=== PATIENT | male | born 1990 | race Caucasian/White ===

== ENCOUNTER 2021-03-09 10:20 | Outpatient (REF) | payer OTHER, SELFPAY ==
--- NOTE | ~2021-03-09 | XR_ITS ---
EXAMINATION: XR FOOT, LEFT CLINICAL INFORMATION: Injury COMPARISON: None TECHNIQUE: AP, lateral, and oblique views of the left foot. FINDINGS: The bones and soft tissues are normal. No fracture. Alignment is anatomic. Joint spaces are maintained. XR/XR foot LT min 3V IMPRESSION: Normal left foot.
== END 2021-03-09 10:21 | disposition home or self-care (01) ==
LOC: HO.HMGCX 10:20
PROVIDERS: Visit Provider Physician Assistant Medical
DX: S99.922A Unspecified injury of left foot, initial encounter (principal); X58.XXXA Exposure to other specified factors, initial encounter; Y93.9 Activity, unspecified; Y92.9 Unspecified place or not applicable; Y99.9 Unspecified external cause status
CPT/HCPCS: 73630

== ENCOUNTER 2022-01-07 09:40 | Outpatient (REF) | payer OTHER, SELFPAY ==
--- NOTE | ~2022-01-07 | XR_ITS ---
EXAMINATION: XR KNEE, RIGHT CLINICAL INFORMATION: Pain of the knee COMPARISON: None TECHNIQUE: Four views of the right knee. FINDINGS: Bones and joints are normal. No arthritic deformity, fracture or joint effusion. The soft tissues appear to be mildly swollen in the prepatellar region. XR/XR knee RT 4V IMPRESSION: * No knee joint effusion. * No acute osseous injury. * Mild soft tissue swelling in the prepatellar region requires clinical correlation. If the patient had a recent fall, then this could represent posttraumatic bruising/edema. Any pain in this area? Prepatellar bursitis might be a consideration.
== END 2022-01-07 09:41 | disposition home or self-care (01) ==
LOC: HO.HMGCX 09:40
PROVIDERS: PCP Internal Medicine; Visit Provider Internal Medicine
DX: M25.561 Pain in right knee (principal)
CPT/HCPCS: 73564

== ENCOUNTER 2022-06-15 09:04 | Outpatient (REF) | payer OTHER, SELFPAY ==
[2022-06-15 12:54] LABS: Influenza A PCR NEGATIVE (Negative); Influenza B PCR NEGATIVE (Negative); Resp Syncy Virus RNA Qual PCR POSITIVE (Negative); SARS COV2 PCR INHOUSE NEGATIVE (Negative)
== END 2022-06-15 09:05 | disposition home or self-care (01) ==
LOC: HO.LAB 09:04
PROVIDERS: Visit Provider Nurse Practitioner Family
DX: Z20.822 Contact with and (suspected) exposure to COVID-19 (principal); J06.9 Acute upper respiratory infection, unspecified
CPT/HCPCS: 0241U

== ENCOUNTER 2023-05-25 08:34 | Outpatient (AMB) | payer OTHER, SELFPAY ==
--- NOTE | 2023-05-25 08:44 | MHC.OFFWIV ---
Intake Vital Signs 05/25/23 08:46 Height 6 ft Weight 183 lb BMI 24.8 BP 134/66 Blood Pressure Location Lt brachial Position Sitting Pulse 100 Pulse Source Pulse Oximeter Temp 99.2 F Temp Source Oral Intake Visit Reasons: EP breathing hard inhaler not working [id number] Intake Note: Pt is here today c/o SOB and coughing, requesting an inhaler> Went to [facility] last night and left after waiting 3 hrs Patient Tobacco Use Status: Current everyday Tobacco user Allergies prednisone Allergy (Mild, Verified 05/25/23 08:44) mental status change Do you need a note to return to daycare/school/sports/work: Yes HPI HPI Comments History of Present Illness Details Patient is a 33-year-old male in today for a sick visit. He states that he recently traveled to [place] and when he returned he developed symptoms of dry cough, headache, congestion, sore throat, and fever. He has a past medical history significant for asthma. He is a cigarette smoker. He has taken some Tylenol with little effect. He states he is unable to take much Tylenol due to him taking lithium. He has used his albuterol inhaler at home with little effect. Denies chest pain, dizziness. States he feels like his lungs are tight, has intermittent shortness of breath especially after coughing spells. He states that he went to [facility] last night had a chest x-ray while he was in the waiting room which was negative, and left before he ever saw provider. [facility] Social History Patient Tobacco Use Status: Current everyday Tobacco user Review of Systems Const Details: Constitutional : No Weight loss, Admits Fever, Admits Chills, Admits Fatigue, No Malaise ENT/Mouth : No sore throat, Admits sinus congestion. Eyes: No Eye Pain, No Swelling, No Redness Cardiovascular : No Chest Pain, Intermittent SOB after coughing spells, No Dyspnea on Exertion, No Orthopnea, No Edema, No Palpitations Respiratory : Admits Cough, No Sputum, Admits Wheezing Gastrointestinal : No Nausea, Admits some Vomiting, No Diarrhea, No Constipation, No abdominal Pain, No Hematochezia, No Melena Neuro : No Weakness, No Numbness, No Dizziness, No Headache All other systems reviewed and are negative Physical Exam Vital Signs: Last Vital Signs Temp 99.2 F 05/25/23 08:46 Pulse 100 05/25/23 08:46 BP 134/66 05/25/23 08:46 BMI result Body Mass Index 24.8 Vital signs have been reviewed and are stable Const Other: Appearance: Alert.? Oriented X3.? No acute distress.? Eyes: Pupils equal, round and reactive to light.? ENT: Pharynx cobblestoned. Clear nasal discharge. Sinus tenderness. TM intact, pearly win. ? Neck: Normal inspection.? Neck supple.?Full ROM. CVS: Normal heart rate and rhythm.? Pulses normal.? Respiratory: No respiratory distress.? Wheeze bilateral upper lobes.? Neuro: Oriented X 3.? No motor deficit.? No sensory deficit. CN 2-12 intact After in office Nebulizer treatment wheeze significantly reduced. Office Procedures Nebulizer Treatment Nebulizer Treatment 53410-[id number]/MDI RX initial, or Nebulizer Subsequent Treatment Office Meds ipratropium 0.5 mg-albuterol 3 mg (2.5 mg base)/3 mL nebulization soln Performing Provider: BRY Mendez Performing Location: [facility] Administered by: BRY Mendez on 05/25/23 09:35 Dose Route Admin Location Dispensed Lot Number Expiration Date [facility] [employer] 3 mL inhalation office 3 mL [id number] 03/06/24 8142-1349-39 [employer] Results Reviewed Results Reviewed: Will call patient with results. Assessment & Plan Assessment & Plan (1) Upper respiratory tract infection: Comment: Patient states that in the past Advair Diskus has helped. He is unable to utilize prednisone as he has adverse effects to it. Will order Advair Diskus, benzonatate, azithromycin. These medication should be taken as directed. He has been educated on the common side effects. Code(s): J06.9 - Acute upper respiratory infection, unspecified Qualifiers: URI type: unspecified URI Qualified Code(s): J06.9 - Acute upper respiratory infection, unspecified Plan: The patient has been educated on signs of worsening symptoms and when to return back to the walk-in clinic or when to present to the emergency room. The patient states he understands. Plan Take your medications as prescribed. If you were prescribed antibiotics today, it is important that you take your medication to their entirety, do not skip any doses, do not finish them early. Follow-up with your primary care provider this week. Return to the emergency department with new or worsening symptoms. Such as fevers, chills, chest pain, shortness of breath, nausea, vomiting, dizziness, headache, vision changes, lethargy In case of emergency call 911 Orders: Orders SARS-CoV2/FLU/RSV Today J06.9 - Acute upper respiratory infection, unspecified AMB Nebulizer Treatment Today J06.9 - Acute upper respiratory infection, unspecified Coding Level of Care Code Est Pt Level 3 (34623) Diagnoses Upper respiratory tract infection, unspecified type J06.9 URI type: unspecified URI CPT Codes Nebulizer Treatment - Nebulizer Treatment, initial or subsequent: [id number]/MDI RX initial, or Nebulizer Subsequent Treatment ([id number]) Time Spent (min) 30
[2023-05-25 08:46] VITALS: BP 134/66; PULSE 100; TEMP 37.3; BMI 24.8
== END 2023-05-25 09:54 | disposition home or self-care (01) ==
PROVIDERS: PCP Internal Medicine; Visit Provider Nurse Practitioner Primary Care
DX: J06.9 Acute upper respiratory infection, unspecified (principal)
CPT/HCPCS: 94640; 99213; J7620

== ENCOUNTER 2023-05-25 11:24 | Outpatient (REF) | payer OTHER, SELFPAY ==
[2023-05-25 12:44] LABS: Influenza A PCR POSITIVE (Negative); Influenza B PCR NEGATIVE (Negative); Resp Syncy Virus RNA Qual PCR NEGATIVE (Negative); SARS COV2 PCR INHOUSE NEGATIVE (Negative)
== END 2023-05-25 11:25 | disposition home or self-care (01) ==
LOC: HO.LNP 11:24
PROVIDERS: Visit Provider Nurse Practitioner Primary Care
DX: Z11.52 Encounter for screening for COVID-19 (principal); J06.9 Acute upper respiratory infection, unspecified
CPT/HCPCS: 0241U

== ENCOUNTER 2024-05-22 08:16 | Outpatient (AMB) | payer BC, SELFPAY ==
--- OUTSIDE RECORDS SUMMARY | 2024-05-22 08:19 | XMS_ITS ---
Author Name [facility] Organization Unknown History of Medication Use Medication Directions Dispensed Refills Start Date End Date Stat us albuterol (VENTOLIN HFA) 90 mcg/actuation inhaler INHALE 2 PUFFS BY MOUTH EVERY 4 HOURS NEEDED FOR WHEEZING OR SHORTNESS OF BREATH/DYSPNEA 05/20/2024 06/05/9999 active lithium 600 MG capsule Take 1 capsule (600 mg total) by mouth 05/20/2024 06/05/9999 active amoxicillin (AMOXIL) 500 MG tablet Take 2 tablets (1,000 mg total) by mouth every 8 (eight) hours for 5 days 05/20/2024 06/05/9999 active cloNIDine HCL (CATAPRES) 0.1 MG tablet TAKE 1 TABLET BY MOUTH EVERY DAY 05/20/2024 06/05/9999 active fluticasone propion-salmeteroL (ADVAIR) 250-50 mcg/dose DISKUS Inhale 1 puff 05/20/2024 06/05/9999 active acetaminophen (TYLENOL) 500 MG tablet Take 1-2 tablets (500-1,000 mg total) by mouth every 6 (six) hours as needed for pain (Max 6 tablets/24 hrs) for up to 7 days 05/20/2024 06/05/9999 active aripiprazole (ABILIFY) 10 MG tablet TAKE 1 TABLET BY MOUTH EVERY DAY IN THE MORNING 05/20/2024 06/05/9999 active Problems Problem Status Onset Date Problem Type Date of Resolution Source Community acquired pneumonia, unspecified laterality active EncounterDiagnosisAct [facility]
--- NOTE | 2024-05-22 08:31 | MHC.OFFWIV ---
Intake Vital Signs 05/22/24 08:32 Height 6 ft Weight 178 lb BMI 24.1 BP 138/80 Blood Pressure Location Rt brachial Position Sitting Pulse 108 H Pulse Source Pulse Oximeter Temp 99.5 F Temp Source Oral Pulse Oximetry (%) 97 Oxygen Delivery Method Room Air Intake Visit Reasons: EP Cough, Congestion, Fever ?Pneumonia Intake Note: Patient here for pneumonia, states he went to an urgent care and was put on Amoxicillin and put out of work for 2 days but is still not feeling well. Patient Tobacco Use Status: Current everyday Tobacco user Allergies prednisone Allergy (Mild, Verified 05/22/24 08:33) mental status change Do you need a note to return to daycare/school/sports/work: Yes HPI EP Cough, Congestion, Fever ?Pneumonia HPI Details This is a 34-year-old male patient who presents today with upper respiratory symptoms. He states that cough, congestion started about 8 days ago, and he developed a fever several days after that. He was seen at another urgent care facility and diagnosed with pneumonia. He is on day 3 of a 5 day course of amoxicillin. He states that his employer is requiring additional documentation excusing him from work due to length of illness. Patient continues to have nonproductive cough. He has an albuterol inhaler, however it does cause side effects. He is taking Tylenol. He denies any GI symptoms. Has BPD and is on [place] and reports he develops side effects from many medications including prednisone. [facility] Social History Patient Tobacco Use Status: Current everyday Tobacco user Review of Systems Const All systems reviewed & are unremarkable except as noted in HPI and below Physical Exam Vital Signs: Last Vital Signs Temp 99.5 F 05/22/24 08:32 Pulse 108 H 05/22/24 08:32 BP 138/80 05/22/24 08:32 Pulse Ox 97 05/22/24 08:32 Oxygen Delivery Method Room Air 05/22/24 08:32 BMI result Body Mass Index 24.1 Const General: cooperative and ill appearing acutely Limitations: no limitations HEENT Head: Yes normal to inspection Ears: hearing grossly normal bilaterally General nose exam: Normal external nose present Neck Neck: Yes no lymphadenopathy Resp Effort & Inspection: Actively coughing Quality: dry Auscultation: rhonchi upper bilaterally and wheezes scattered wheezes Cardio Jugular venous distension: no JVD Palpation: normal PMI Rate: regular rate Rhythm: regular rhythm Skin General skin exam: no rashes or lesions noted Extrem General: Yes capillary refill normal and Yes no clubbing, cyanosis or edema Psych Appearance: grossly normal Mental Status: mental status grossly normal Speech and movement: Normal speech and movement present Assessment & Plan Assessment & Plan (1) Upper respiratory tract infection: Comment: Code(s): J06.9 - Acute upper respiratory infection, unspecified Qualifiers: URI type: unspecified URI Qualified Code(s): J06.9 - Acute upper respiratory infection, unspecified Plan: He is unable to utilize prednisone as he has adverse effects to it. He is going to complete last several days of amox regimen. I will start him on Benzonatate - we reviewed indications, use, possible s/e. Advised increased hydration, rest. Work note provided as requested. Advised him to return to clinic if he does not improve with continued treatment or if symptoms worsen/new symptoms develop. He declines any viral testing today. He verbalizes understanding and agrees to plan. Medications: New benzonatate 100 mg PO BID 7 days PRN 14 caps 0RF cough J06.9 - Acute upper respiratory infection, unspecified, R05.9 - Cough, unspecified Coding Level of Care Code Est Pt Level 4 (03952) Diagnoses Upper respiratory tract infection, unspecified type J06.9 URI type: unspecified URI
[2024-05-22 08:32] VITALS: BP 138/80; PULSE 108; TEMP 37.5; O2SAT 97; BMI 24.1
== END 2024-05-22 09:21 | disposition home or self-care (01) ==
PROVIDERS: PCP Internal Medicine; Visit Provider Nurse Practitioner Family
DX: J06.9 Acute upper respiratory infection, unspecified (principal)

== ENCOUNTER → 2024-05-22 08:16 | Outpatient (BNVA) | payer BC, SELFPAY | PROVIDERS: PCP Internal Medicine; Visit Provider Nurse Practitioner Family ==